=== PATIENT | male | born 1985 | race Caucasian/White ===

== ENCOUNTER 2017-02-09 18:10 | Emergency (ER) | payer OTHER ==
[2017-02-09 18:26] VITALS: BP 128/79; PULSE 98; RESP 20; TEMP 98.9; O2SAT 98
--- NOTE | 2017-02-09 18:46 | ED PDOC ---
HPI: Skin/Bite Injury Time Seen by Provider: 02/09/17 18:26 Chief Complaint (Nursing): Psychiatric Evaluation Chief Complaint (Provider): rash History Per: Patient Additional Complaint(s): Patient presents to ED for evaluation of rash to chest wall that has been ongoing for 2-3 years. He states he was seen in 2014 for same complaint and he was given pills for the rash. He is not sure what medication he was given at that time. Patient states rash is itchy from time to time. He denies any pain , fever or chills. [facility] for eval of rash and EMS was called for patient to be brought here. EMS state patient was acting erratically on way to ED. Upon arrival patient denies any suicidal or homicidal ideation. He denies auditory or visual hallucinations. Past Medical History Reviewed: Historical Data, Nursing Documentation, Vital Signs Vital Signs: Last Vital Signs Temp 98.9 F 02/09/17 18:24 Pulse 98 H 02/09/17 18:24 Resp 20 02/09/17 18:24 BP 128/79 02/09/17 18:24 Pulse Ox 98 02/09/17 18:53 - Medical History PMH: No Chronic Diseases - Surgical History Surgical History: No Surg Hx - Family History Family History: States: No Known Family Hx - Living Arrangements Living Arrangements: With Family - Social History Current smoker - smoking cessation education provided: No Alcohol: None Drugs: Denies - Home Medications Home Medications: Ambulatory Orders Medication Instructions Recorded Fluconazole 300 mg PO ONCE #4 tab 10/25/14 Ketoconazole 2% Cr [Nizoral] 60 gm TOP BID #1 tube 02/09/17 - Allergies Allergies/Adverse Reactions: Allergies Allergy/AdvReac Type Severity Reaction Status Date / Time No Known Allergies Allergy Verified 02/09/17 18:23 Review of Systems ROS Statement: Except As Marked, All Systems Reviewed And Found Negative Constitutional: Negative for: Fever Cardiovascular: Negative for: Chest Pain Respiratory: Negative for: Cough Gastrointestinal: Negative for: Nausea, Vomiting Skin: Positive for: Rash (for 2-3 years) Physical Exam - Reviewed Nursing Documentation Reviewed: Yes Vital Signs Reviewed: Yes - Physical Exam Appears: Positive for: Well, Non-toxic, No Acute Distress Skin: Positive for: Rash (tinea versicolor anterior chest wall) Eye Exam: Positive for: Normal appearance, EOMI, PERRL Cardiovascular/Chest: Positive for: Regular Rate, Rhythm Respiratory: Positive for: Normal Breath Sounds. Negative for: Wheezing, Respiratory Distress Extremity: Positive for: Normal ROM. Negative for: Pedal Edema Neurologic/Psych: Positive for: Alert, Oriented - ECG O2 Sat by Pulse Oximetry: 98 Pulse Ox Interpretation: Normal Medical Decision Making Medical Decision Making: Impression: Tinea versicolor Plan: Rx ketoconazole cream Patient denies any other complaints upon arrival. He denies SI/HI and also denies visual or auditory hallucinations. Patient was referred to clinic for follow up in 2-3 days. Disposition - Clinical Impression Clinical Impression: Tinea versicolor - Patient ED Disposition Is Patient to be Admitted: No Counseled Patient/Family Regarding: Diagnosis, Need For Followup, Rx Given - Disposition Referrals: [facility] [Outside] Disposition: Routine/Home Disposition Time: 18:43 Condition: STABLE Additional Instructions: Apply cream as directed. Follow up with clinic. Prescriptions: Ketoconazole 2% Cr [Nizoral] 60 gm TOP BID #1 tube Instructions: Tinea Versicolor (ED) Forms: [employer] ([place]rainian)
== END 2017-02-09 18:59 | disposition home or self-care (01) ==
LOC: H.ER 18:10
DX: B36.0 Pityriasis versicolor (principal)

== ENCOUNTER 2017-02-11 10:07 | Emergency (ER) | payer OTHER ==
[2017-02-11 10:09] VITALS: BP 143/93; PULSE 84; TEMP 98.1; BMI 22.3
[2017-02-11 10:16] VITALS: O2SAT 98
--- NOTE | 2017-02-11 10:45 | ED PDOC ---
HPI: Psych/Substance Abuse Time Seen by Provider: 02/11/17 10:21 Chief Complaint (Nursing): Psychiatric Evaluation Chief Complaint (Provider): Crisis eval History Per: Patient, EMS Additional Complaint(s): 31 yo male, no PMH, presents to ED in order to undergo crisis eval. EMS reports pt has been c/o hearing voices and needs to speak to someone. No homicidal or suicidal ideations. No physical complaints. Past Medical History Reviewed: Nursing Documentation, Vital Signs Vital Signs: Last Vital Signs Temp 98.1 F 02/11/17 10:08 Pulse 84 02/11/17 10:08 Resp BP 143/93 H 02/11/17 10:08 Pulse Ox 98 02/11/17 10:11 - Medical History PMH: No Chronic Diseases - Surgical History Surgical History: No Surg Hx - Family History Family History: States: Unknown Family Hx - Living Arrangements Living Arrangements: With Family - Social History Current smoker - smoking cessation education provided: No Alcohol: None Drugs: Denies - Home Medications Home Medications: Ambulatory Orders Medication Instructions Recorded RX: Fluconazole 300 mg PO ONCE #4 tab 10/25/14 RX: Ketoconazole 2% Cr [Nizoral] 60 gm TOP BID #1 tube 02/09/17 - Allergies Allergies/Adverse Reactions: Allergies Allergy/AdvReac Type Severity Reaction Status Date / Time No Known Allergies Allergy Verified 02/09/17 18:23 Review of Systems ROS Statement: Except As Marked, All Systems Reviewed And Found Negative Psych: Positive for: Other (Auditory hellucinations) Physical Exam - Reviewed Nursing Documentation Reviewed: Yes Vital Signs Reviewed: Yes - Physical Exam Appears: Positive for: Well, Non-toxic, No Acute Distress Head Exam: Positive for: ATRAUMATIC, NORMAL INSPECTION, NORMOCEPHALIC Skin: Positive for: Normal Color, Warm, DRY Eye Exam: Positive for: EOMI, Normal appearance, PERRL ENT: Positive for: Normal ENT Inspection Neck: Positive for: Normal, Painless ROM Cardiovascular/Chest: Positive for: Regular Rate, Rhythm Respiratory: Positive for: CNT, Normal Breath Sounds Gastrointestinal/Abdominal: Positive for: Normal Exam, Bowel Sounds, Soft Back: Positive for: Normal Inspection Extremity: Positive for: Normal ROM Neurologic/Psych: Positive for: Alert, Oriented - ECG O2 Sat by Pulse Oximetry: 98 Medical Decision Making Medical Decision Making: Crisis eval ordered, UDS requested UDS resulted (-) Pt underwent crisis eval, see note. stable for discharge at this time. Disposition - Clinical Impression Clinical Impression: Depression - Patient ED Disposition Is Patient to be Admitted: No - Disposition Disposition: Routine/Home Disposition Time: 15:08 Condition: STABLE Instructions: Depression (ED) Forms: [employer] ([place]) - POA Present On Arrival: None
[2017-02-11 14:15] LABS: BARBITURATES, UR NEGATIVE (NEGATIVE); BENZODIAZEPINES, UR NEGATIVE (NEGATIVE); OPIATES, UR NEGATIVE (NEGATIVE); PHENCYCLIDINE, UR NEGATIVE (NEGATIVE)
== END 2017-02-11 15:26 | disposition home or self-care (01) ==
LOC: H.ER 10:07
DX: F32.9 Major depressive disorder, single episode, unspecified (principal)